=== PATIENT | female | born 1970 | race Caucasian/White ===

== ENCOUNTER 2020-03-30 16:20 | Emergency (ER) | payer MEDICAID ==
[~2020-03-30] VITALS: Ht 129.5 cm; Wt 62.0 kg
[2020-03-30 16:40] VITALS: BP 163/88
[2020-03-30] MEDS: KETOROLAC 30MG/ML VIAL IM ONE ×2 (17:48→17:52)
[2020-03-30] MEDS ORDERED: ACETAMINOPHEN 325MG TABLET PO ONE (18:30)
== END 2020-03-30 19:05 | disposition home or self-care (01) ==
LOC: ER 16:20
DX: S89.92XA Unspecified injury of left lower leg, initial encounter (principal); W01.0XXA Fall on same level from slipping, tripping and stumbling without subsequent striking against object, initial encounter; Y93.89 Activity, other specified; Y92.89 Other specified places as the place of occurrence of the external cause
CPT/HCPCS: 72100; 72170; 73562; 99284; J1885; L1830; Z7610

== ENCOUNTER 2021-04-22 16:54 | Emergency (ER) | payer MEDICAID ==
[~2021-04-22] VITALS: Ht 152.4 cm; Wt 60.0 kg
[2021-04-22 17:06] VITALS: BP 146/99
== END 2021-04-22 17:48 | disposition home or self-care (01) ==
LOC: ER 16:54
DX: H11.31 Conjunctival hemorrhage, right eye (principal); Z98.890 Other specified postprocedural states
CPT/HCPCS: 99281